=== PATIENT | female | born 1990 | race Hispanic/Latino ===

== ENCOUNTER 2023-11-06 19:31 | Emergency (ER) | payer OTHER ==
[~2023-11-06] VITALS: Ht 162.6 cm; Wt 117.9 kg
--- NOTE | 2023-11-06 19:35 | NUR ---
UA CUP PROVIDED
[2023-11-06 19:41] VITALS: BP 157/90; PULSE 102; RESP 20; TEMP 98.3; O2SAT 97
[2023-11-06] MEDS ORDERED: NAPR-1505 PO (19:44)
--- NOTE | 2023-11-06 19:44 | ERN ---
General Chief Complaint: Mechanical Fall Stated Complaint: FALL Time Seen by MD: 19:33 Source: patient History of Present Illness Initial Comments Patient is a 33-year-old female coming in to be evaluated for gluteal pain. Patient states he fell down on accident three days ago. Patient was concerned because she had a ecchymosis and swelling to her gluteal region. Patient felt a little numb and was concerned so decided to come in to be evaluated. She also states that the swelling is slightly Allergies: Coded Allergies: No Known Allergies (Unverified Allergy, Unknown, 11/06/23) Past Medical History Past Medical History: No Pertinent History Past Surgical History: Tonsillectomy, BTL Female( History) LMP: Nov 05, 2023 ROS Dictation CONSTITUTIONAL: No chills, no fever, no weakness, no diaphoresis, no malaise. HEAD/FACE: No signs of trauma. EENT: No eye pain, no blurred vision, no tearing, no double vision, no ear pain, no ear discharge, no nose pain, no nasal congestion, no throat pain, no throat swelling, no mouth pain. RESPIRATORY: No cough, no orthopnea, no SOB, no stridor, no wheezing. CARDIOVASCULAR: No chest pain, no edema, no palpitations, no syncope. GASTROINTESTINAL/ABDOMINAL: No abdominal pain, no constipation, no diarrhea, no nausea, no vomiting. GENITOURINARY: No abnormal discharge, no dysuria, no frequent urination, no hematuria. No complaints of pain in the genitals. MUSCULOSKELETAL: No back pain, no gout, no joint pain, no joint swelling, no muscle pain, no muscle stiffness, no neck pain. INTEGUMENTARY: No change in color, no change in hair/nails, no dryness, no lesion, no lumps, no rash. NEUROLOGICAL/PSYCH: No anxiety, not depressed, no emotional problem, no headache, no numbness, no pre-existing deficit, no history of seizures, no tremors, no weakness. HEMATOLOGIC/LYMPHATIC: Not anemic, no history of blood clots, no apparent bleeding, no bruising, glands not swollen. All Systems Negative, Except as Noted. Physical Exam Physical Exam Dictation VITAL SIGNS: Reviewed. GENERAL APPEARANCE: Alert, oriented x3, no acute distress, obese. HEAD AND FACE: Non-traumatic. EYES: PERRL, pink conjunctivas, eyelid no trauma, anterior chamber clear. EARS: Pinnas intact and no signs of trauma or erythema. Ear canals clear and no discharge. TMs no erythema. NOSE: No discharge, no bleeding. OROPHARYNX: Mouth normal, teeth no caries, tongue pink. Pharynx clear, no erythema. Tonsils no exudates, no abscesses noted. Mucous membrane moist. NECK: Supple, non-tender, no thyromegaly, no masses, no JVD, no bruits. BREAST: Deferred. CHEST: No tenderness, no crepitus, no paradoxical movement, no retractions. LUNGS: Clear, well-ventilated, symmetric, no rales, no wheezing, no rhonchi, no stridor, good breath sounds bilaterally. HEART: Regular rate, regular rhythm, no murmur, no gallops. VASCULAR: No peripheral edema. ABDOMEN: Soft, positive bowel sounds, nondistended, no guarding, nontender, no rebound, no masses no hepatomegaly, no splenomegaly, no Mi's sign, no hernias. RECTAL: Deferred. GENITAL: Deferred. NEUROLOGICAL: Normal speech, gross motor function intact, gross sensory function intact. MUSCULOSKELETAL: Neck nontender, full range of motion, back nontender, full range of motion. EXTREMITIES: Nontender, full range of motion. SKIN: Color pink, ecchymosis and swelling to both gluteal regions LYMPHATICS: Deferred. Results Laboratory and Microbiology Labs Reviewed?: Yes MDM MDM: Differential diagnosis: Fall, ecchymosis, tissue contusion Rationale: Tests considered and ordered secondary to shared decision making include: Previous outside records reviewed: Old ER visits. Risk of complication and/or morbidity or mortality of patient management: None Medications-Per medication reconciliation Need for hospitalization: Patient does not meet criteria for hospitalization. Need for emergency major/minor surgery: No There are no social concerns with this patient. Prescription drug management Prescriptions will include symptomatic care Patient's prior external medical records from other ER visits were reviewed by me as indicated. Prior testing and results from previous visits were reviewed. Prior tests were taken into account with medical decision making and resource utilization, independent historian/historians were used to obtain complete medical history. I independently interpreted the test that were performed, results were reviewed by me and considered findings on radiology if ordered. Medical management and examination interpretation discussions were had by me with other qualified healthcare professionals as indicated for the patient's care. Patient is a 33-year-old female coming in to be evaluated after she had a fall three days ago. Patient was concerned because she did feel the numbness due to the swelling in the gluteal regions. Patient was examined chaperoned by nurse, gluteal region is mildly swollen with ecchymosis but no consolidation felt. Patient will be discharged with a diagnosis of tissue contusion with fall. I advised her appropriate follow up PCP and continue applying ice and anti-inflammatory medication. ED Course Vital Signs Date Time Temp Pulse Resp B/P (MAP) Pulse Ox O2 Delivery O2 Flow Rate FiO2 11/06/23 19:32 98.8 100 20 170/89 99 Room Air DX & DISP Disposition: Discharge Departure Impression: Primary Impression: Fall Additional Impression: Contusion of soft tissue Condition: Stable Scripts Naproxen (Naproxen) 375 Mg Tablet. 375 MG PO BID for 7 Days, #14 TAB Prov: ELDA GOOD MD 11/06/23 Additional Instructions: FOLLOW-UP WITH PRIMARY CARE PROVIDER IN 1 TO 2 DAYS. TAKE MEDICATIONS DIRE CTED HERE IN THE EMERGENCY ROOM. OKAY TO CONTINUE HOME MEDICATIONS UNLESS OTHERWISE DISCUSSED DURING YOUR VISIT IN THE EMERGENCY ROOM TODAY. RETURN TO YOUR NEAREST EMERGENCY ROOM IF SYMPTOMS WORSEN OR IF THERE IS NO IMPROVEMENT. CALL 911 IF YOU NEED IMMEDIATE ASSISTANCE. TAKE TYLENOL [id number] NEEDED AND IF NO CONTRAINDICATIONS ARE PRESENT. INCREASE ORAL HYDRATION. A WOUND CULTURE OR URINE CULTURE WAS ORDERED HERE IN THE EMERGENCY ROOM DEPARTMENT PLEASE FOLLOW-UP WITH PRIMARY CARE PROVIDER AND ADVISE THEM TO GET REPEAT PORTS FROM OUR FACILITY. IF YOU HAD ANY AMY WRAP/SPLINTS THAT WERE APPLIED HERE, PLEASE DO NOT REMOVE THEM UNTIL YOU SEE YOUR PRIMARY CARE OR SPECIALTY. Referrals: Referrals: GIDEON CHAVES MD Time of Disposition: 19:43 ELDA GOOD MD Nov 06, 2023 19:44
[2023-11-06] MEDS: NAPROXEN 500 MG TABLET PO ONE (19:48)
--- NOTE | 2023-11-06 19:52 | NUR ---
PATIENT DISCHARGED UNABLE TO REMOVE FROM SYSTEM DUE TO REGISTRATION BEING IN CHART.
== END 2023-11-06 19:58 | disposition home or self-care (01) ==
LOC: EDH 19:31
DX: S30.0XXA Contusion of lower back and pelvis, initial encounter (principal); Z90.89 Acquired absence of other organs; Z98.51 Tubal ligation status; W18.39XA Other fall on same level, initial encounter; Y93.89 Activity, other specified; Y92.89 Other specified places as the place of occurrence of the external cause; Y99.8 Other external cause status